=== PATIENT | female | born 2000 ===

== ENCOUNTER → 2021-08-30 | Outpatient (CLI) | payer OTHER ==
[~2021-08-30] MED LIST: PRENATAL
== END ==
LOC: DIA.ED 08-14 11:03
DX: O24.419 Gestational diabetes mellitus in pregnancy, unspecified control (principal)
CPT/HCPCS: G0108

== ENCOUNTER 2021-10-05 10:39 | Outpatient (CLI) | payer OTHER ==
[~2021-10-05] VITALS: Ht 149.9 cm; Wt 78.6 kg
--- NOTE | 2021-10-05 10:45 | NUR ---
patient here to LR4 for a labor check. patient sent over from office with elevated blood pressure. patient here with , ancelmo. paitent denies bleeding, leaking of fluid or contractions. patient in the bathroom from [id number]
[2021-10-05] MEDS ORDERED: PRENATAL (11:09)
[2021-10-05 11:18] LABS: BASO % 0.3 % (0.0-2.0); EOS % 0.3 % (0-4.0); GRAN # 6.8 K/mm3 (1.4-6.5); LYMPH # 2.3 K/mm3 (1.2-3.4); LYMPH % 23.5 % (20.0-51.0); MEAN CELL VOLUME 78 fl (80.0-95.0); MEAN CORPUSCULAR HGB CONC 31 g/dl (33.0-37.0); MEAN PLATELET VOLUME 11.4 fl (7.4-10.4); MONO # 0.7 K/mm3 (0.1-0.6); MONO % 6.8 % (1.7-9.3); PLATELET COUNT 245 K/mm3 (130-400); RED BLOOD COUNT 3.72 M/mm3 (4.10-5.30)
[2021-10-05 11:20] LABS: HEMATOCRIT 29.1 % (35.0-45.0); HEMOGLOBIN 9.1 g/dl (12.0-15.0); MEAN CORPUSCULAR HEMOGLOBIN 24 pg (26.0-32.0)
[2021-10-05 11:30] VITALS: BP 151/71; PULSE 93; TEMP 98
[2021-10-05 11:32] LABS: ALBUMIN 2.9 gm/dL (3.5-5.0); BILIRUBIN,TOTAL 0.2 mg/dL (0.2-1.2); CALCIUM 8.7 mg/dL (8.4-10.2); CREATININE, serum 0.72 mg/dL (0.57-1.11); POTASSIUM 3.8 mmol/L (3.5-4.5); TOTAL PROTEIN 6.9 gm/dL (6.2-8.1)
[2021-10-05 11:55] LABS: COLLECTION METHOD CLEAN CATCH
[2021-10-05 12:00] VITALS: BP 127/64; PULSE 75
[2021-10-05 12:03] LABS: MUCOUS Present (NOT PRESENT); PH 6 (5-8); URINE APPEARANCE Hazy (CLEAR/HAZY); URINE BACTERIA Rare (NONE SEEN); URINE BILIRUBIN Negative (NEGATIVE); URINE BLOOD 1+ (NEGATIVE); URINE COLOR Yellow (YELLOW); URINE GLUCOSE Negative (NEGATIVE); URINE KETONE Negative (NEGATIVE); URINE LEUKOCYTE ESTERASE Trace (NEGATIVE); URINE NITRATE Negative (NEGATIVE); URINE PROTEIN(semi-quant) Negative (NEGATIVE); URINE RBC 0-2 /hpf (0-2); URINE UROBILINOGEN Negative (NEGATIVE)
[2021-10-05 12:28] VITALS: BP 124/61; PULSE 76
== END 2021-10-05 12:35 | disposition home or self-care (01) ==
LOC: LDRO 10:39
PROVIDERS: Obstetrics & Gynecology
DX: O13.3 Gestational [pregnancy-induced] hypertension without significant proteinuria, third trimester (principal); Z3A.38 38 weeks gestation of pregnancy

== ENCOUNTER 2021-10-21 08:19 | Outpatient (CLI) | payer OTHER ==
[~2021-10-21] VITALS: Ht 149.9 cm; Wt 81.8 kg
--- NOTE | 2021-10-21 08:30 | NUR ---
Patient ambulatory to LR6 with spouse, patient void and urine obtained, changed into gown, FHR/TOCO monitors placed and explained. Patient here for potential induction at this time for increased blood pressures. Plan of care discussed. 0840: IV attemepted. Dr. Bush at bedside and discusses the change of plan. Dr. Bush discussing due to blood pressures stable and if labs are okay that she will be discharged. Patient verbalizes understanding and agrees with plan. 0845: SVE-3/80/-2 and membranes stripped at this time per Dr. Bush. 0920: Subtle late decelerations noted and Dr. Bush at nurses station reviewing FHR strip. 0930: Labs resulted and within normal limits and Dr. Bush orders her to be discharged and for her to do blood pressure check this week in the office. 0939: Patient off monitors and discussed plan and discharge instructions given. Patient verbalizes understanding. 0955: Patient ambulates off unit with spouse.
[2021-10-21 09:00] VITALS: BP 136/63; PULSE 93
[2021-10-21 09:16] LABS: COLLECTION METHOD CLEAN CATCH
[2021-10-21 09:19] LABS: MEAN CELL VOLUME 79 fl (80.0-95.0); MEAN CORPUSCULAR HGB CONC 31 g/dl (33.0-37.0); MEAN PLATELET VOLUME 11.3 fl (7.4-10.4); PLATELET COUNT 204 K/mm3 (130-400); RED BLOOD COUNT 3.62 M/mm3 (4.10-5.30); REDCELL DISTRIBUTION WIDTH-CV 15.8 % (11.5-14.5)
[2021-10-21 09:21] LABS: HEMATOCRIT 28.5 % (35.0-45.0); HEMOGLOBIN 8.7 g/dl (12.0-15.0); MEAN CORPUSCULAR HEMOGLOBIN 24 pg (26-32)
[2021-10-21 09:22] LABS: MUCOUS Present (NOT PRESENT); PH 6 (5-8); URINE APPEARANCE Hazy (CLEAR/HAZY); URINE BACTERIA None Seen (NONE SEEN); URINE BILIRUBIN Negative (NEGATIVE); URINE BLOOD 2+ (NEGATIVE); URINE COLOR Yellow (YELLOW); URINE GLUCOSE Negative (NEGATIVE); URINE KETONE Negative (NEGATIVE); URINE LEUKOCYTE ESTERASE 1+ (NEGATIVE); URINE NITRATE Negative (NEGATIVE); URINE PROTEIN(semi-quant) Negative (NEGATIVE); URINE RBC 0-2 /hpf (0-2); URINE UROBILINOGEN Negative (NEGATIVE); URINE WBC 20-50 /hpf (0-2)
[2021-10-21 09:44] LABS: ALBUMIN 2.6 gm/dL (3.5-5.0); BILIRUBIN,TOTAL 0.2 mg/dL (0.2-1.2); CALCIUM 8.6 mg/dL (8.4-10.2); CREATININE, serum 0.68 mg/dL (0.57-1.11); POTASSIUM 4.1 mmol/L (3.5-4.5); TOTAL PROTEIN 6.2 gm/dL (6.2-8.1)
[2021-10-21 09:49] VITALS: BP 117/67; PULSE 78; TEMP 98.2
[2021-10-21 10:51] LABS: BAND 1 % (0-10); LYMPHOCYTE 23 % (20.0-51.0); NEUTROPHILS 71 % (42.0-75.2)
[2021-10-21 10:55] LABS: ANISOCYTOSIS 1+; HYPOCHROMIA 3+; MICROCYTOSIS 1+; PLATELET ESTIMATE NORMAL (NORMAL)
== END 2021-10-21 09:55 | disposition home or self-care (01) ==
LOC: LDRO 08:19 → LDR 09:01 → LDRO 09:55
PROVIDERS: Obstetrics & Gynecology
DX: O13.3 Gestational [pregnancy-induced] hypertension without significant proteinuria, third trimester (principal); Z3A.40 40 weeks gestation of pregnancy

== ENCOUNTER 2021-10-22 07:53 | Inpatient (IN) | payer OTHER ==
[2021-10-22] VITALS (44 sets, daily range): BP systolic 101–168; BP diastolic 55–97; PULSE 90–150; TEMP 98.8–101.8
--- NOTE | 2021-10-22 08:00 | NUR ---
Patient ambulates to LR5 with spouse, changed into gown, FHR/TOCO monitors placed. Patient states "I had a gush of fluid around 0630 this morning and then two more gushes and continue to leak". Denies any regular contractions/vaginal bleeding/decreased movement. Plan of care discussed. SVE-3/80/-2 and clear/yellow fluid noted on chucks. Amniotest undetermined. Patient updated on plan and questions answered. 0830: FHR baseline 145bpm and minimal variability noted. Patient stands at bedside and fluid gushes down leg and amnitest positive. Dr. Palacios notified and admit order received. 0900: FHR baseline 145bpm and minimal variability noted and patient left lateral. 0915: IV started in right hand, blood obtained and to lab, LR bolus started. Patient off monitors to void.
[2021-10-22 09:37] LABS: BASO % 0.2 % (0.0-2.0); EOS % 0.1 % (0.0-4.0); GRAN # 10.8 K/mm3 (1.4-6.5); GRAN % 79.3 % (42.2-75.2); LYMPH # 1.9 K/mm3 (1.2-3.4); MEAN CELL VOLUME 75 fl (80.0-95.0); MEAN CORPUSCULAR HGB CONC 31 g/dl (33.0-37.0); MEAN PLATELET VOLUME 11.5 fl (7.4-10.4); MONO # 0.7 K/mm3 (0.1-0.6); MONO % 5.4 % (1.7-9.3); PLATELET COUNT 202 K/mm3 (130-400); RED BLOOD COUNT 3.88 M/mm3 (4.10-5.30); REDCELL DISTRIBUTION WIDTH-CV 15.9 % (11.5-14.5)
[2021-10-22 09:38] LABS: HEMATOCRIT 29.1 % (35.0-45.0); MEAN CORPUSCULAR HEMOGLOBIN 23 pg (26-32)
--- NOTE | 2021-10-22 09:45 | NUR ---
Dr. Palacios at nurses station and reviewing FHR strip at this time. Patient notified of FHR baseline and minimal variability and drinking cranberry juice at this time. 1000: Dr. Palacios at bedside and SVE 3/-1 and AROM of forebag at this time, clear fluid noted. Dr. Palacios discussing plan of care with patient and spouse. 1030: Patient requesting epidural at this time and Shara TERRAZZ[employer] MECHANIC notified. 1040: Patient sitting up on edge of bed for placement of epidural and Tory Bishop TERRAZZO MECHANIC at bedside. Difficulty tracing FHR due to maternal position. Patient anxious and this RN assisting patient. 1052: Test dose given and patient tolerates well. 1100: Patient repositioned and plan of care/safety instructions discussed. 1125: FHR baseline 145bpm with minimal variability noted and patient wedged left.
--- NOTE | 2021-10-22 11:45 | NUR ---
Patient uncomfortable and patient has pushed button twice and legs do not feel numb per patient. 1200: SVE 5-/-1 and patient feeling alot of discomfort with check. Tory Bishop CRNA notified. 1215: Tory Bishop CRNA at bedside and removes epidural catheter at this time. Patient sitting up for epidural replacement. Difficulty tracing FHR due to maternal heart position. 1222: Test dose given and patient tolerates well. 1228: Patient repositioned and plan of care discussed. 1255: Patient comfortable with epidural and mata catheter placed. SVE /-1.
--- NOTE | 2021-10-22 13:00 | NUR ---
This RN discussing FHR with patient and discussing that FHR baseline has been 145-150bpm and has continuously been minimal varibiality. FHR stable.
--- NOTE | 2021-10-22 14:18 | NUR ---
SVE-7/90/-1 and patient right lateral. Dr. Palacios updated on progress.
--- NOTE | 2021-10-22 14:50 | NUR ---
Patient placed in knees chest and FHR increasing to 160bpm. 1500: Patient left lateral. 1515: Dr. Palacios updated at nurses station and orders to start antibiotics at this time. 1530: Physician at bedside and assessing FHR strip and patient. SVE per physician /-1. Patients temperature 102.0 at this time.
--- NOTE | 2021-10-22 16:32 | NUR ---
SVE-7-8/100/-1 and patient weged left. Patient vomits at this time. 1636: FHR decreasing to 100 bpm. 1637: FHR decreasing to 60bpm for 50-60 seconds and patient left lateral. SVE-7-8/100/-1. 1645: Dr. Palacios called and notified of heart rate. 1655: Dr. Palacios at bedside and assessing FHR strip and patient. SVE-7-8/100/-1 1700-Dr. Palacios discussing the need for a csection at this time. Patient agrees with plan and plan of surgery/risks discussed. 1705: Temperature 102.3. Patient prepped for surgery and questions answered. 1711: Patient off monitor and to OR.
[2021-10-23 05:15] VITALS: BP 124/65; PULSE 88; TEMP 98.1
[2021-10-23 07:30] VITALS: BP 122/56; PULSE 91; TEMP 97.9
--- NOTE | 2021-10-23 07:45 | NUR ---
Rests in bed, alert. Ibuprofen 800 mg given as ordered. Gentamycin 80 mg given iv as ordered.
[2021-10-23] MEDS ORDERED: PERCOCET 325 MG1 TA2 PO (08:12)
[2021-10-23] MEDS ORDERED: MOTRIN 800800 MG/TAB PO (08:12)
--- NOTE | 2021-10-23 09:19 | NUR ---
Initial visit; Parents thanked Master Motorcycle Technician for offering congratulations and God's blessings for the of their daughter. Master Motorcycle Technician thanked family for choosing [facility].
[2021-10-23 11:15] VITALS: BP 119/58; PULSE 87; TEMP 97.9
--- NOTE | 2021-10-23 13:30 | NUR ---
Rests in bed, alert. Eating lunch. Denies any needs at this time.
[2021-10-23 16:15] VITALS: BP 123/57; PULSE 90; TEMP 97.9
--- NOTE | 2021-10-23 16:19 | NUR ---
Ibuprofen 800 mg, oxycodone 5 mg given as ordered.
[2021-10-23 20:00] VITALS: BP 128/69; PULSE 90; TEMP 98.6
--- NOTE | 2021-10-23 20:51 | NUR ---
THIS PT DID RECEIVE 3 DOSES OF GENT. THERE WAS A DOSE GIVEN AT 2300 ON 10/22/21 BUT WAS NOT DOCUMENTED. THIS WAS VERIFIED BY THE ACTIVITY SHEET OF THE OMNICELL AND THE RN WHO GAVE IT.
--- NOTE | 2021-10-24 00:30 | NUR ---
PT IS ASLEEP DOES NOT WAKE WHEN RN ENTERS ROOM AND CALLS HER NAME. PT DID NOT NOT WANT TO BE WOKEN UP FOR MOTRIN IF BABY WAS NOT READY TO EAT.
[2021-10-24 02:00] VITALS: BP 120/60; PULSE 77; TEMP 98.4
[2021-10-24 07:46] VITALS: BP 119/68; PULSE 78; TEMP 97.6
[2021-10-24 15:46] VITALS: BP 120/66; PULSE 103; TEMP 97.7
[2021-10-24 19:30] VITALS: BP 131/67; PULSE 107; TEMP 98.1
[2021-10-25 06:00] VITALS: BP 119/56; PULSE 90; TEMP 98.1
[2021-10-25 07:00] VITALS: BP 114/72; PULSE 86; TEMP 98.2
== END 2021-10-25 14:00 | disposition home or self-care (01) | DRG 786 ==
LOC: LDRO 07:53 → LDR 08:25 → OB 18:57 → LDRO 10-23 → OB 10-23 02:06
PROVIDERS: Obstetrics & Gynecology; ADMIT Obstetrics & Gynecology
PROC: 10D00Z1 Extraction of Products of Conception, Low, Open Approach (ICD-10-PCS; principal; 2021-10-23)
DX: O13.4 Gestational [pregnancy-induced] hypertension without significant proteinuria, complicating childbirth (principal); O41.1230 Chorioamnionitis, third trimester, not applicable or unspecified; O24.420 Gestational diabetes mellitus in childbirth, diet controlled; O76 Abnormality in fetal heart rate and rhythm complicating labor and delivery; O62.1 Secondary uterine inertia; O75.89 Other specified complications of labor and delivery; O32.4XX0 Maternal care for high head at term, not applicable or unspecified; O90.81 Anemia of the puerperium; D64.9 Anemia, unspecified; Z3A.40 40 weeks gestation of pregnancy; Z37.0 Single live birth
CPT/HCPCS: J0171; J0290; J1580; J1885; J2405; J2590; J7120

== ENCOUNTER 2021-11-03 16:01 | Emergency (ER) | payer OTHER ==
[~2021-11-03] VITALS: Ht 149.9 cm; Wt 71.2 kg
[~2021-11-03 16:01] MED LIST changes: +MOTRIN 800800 MG/TAB PO; +PERCOCET 325 MG1 TA2 PO
[2021-11-03 16:33] VITALS: TEMP 100.7
[2021-11-03 17:15] LABS: COLLECTION METHOD CLEAN CATCH
[2021-11-03 17:18] LABS: BASO % 0.4 % (0.0-2.0); EOS % 0.2 % (0.0-4.0); GRAN # 8.9 K/mm3 (1.4-6.5); GRAN % 87.3 % (42.2-75.2); LYMPH # 0.8 K/mm3 (1.2-3.4); LYMPH % 8.3 % (20.0-51.0); MEAN CELL VOLUME 78 fl (80.0-95.0); MEAN CORPUSCULAR HGB CONC 29 g/dl (33.0-37.0); MEAN PLATELET VOLUME 9.5 fl (7.4-10.4); MONO # 0.4 K/mm3 (0.1-0.6); MONO % 3.5 % (1.7-9.3); PLATELET COUNT 338 K/mm3 (130-400); RED BLOOD COUNT 3.51 M/mm3 (4.10-5.30); REDCELL DISTRIBUTION WIDTH-CV 16.4 % (11.5-14.5)
[2021-11-03 17:19] LABS: HEMATOCRIT 27.3 % (35.0-45.0); MEAN CORPUSCULAR HEMOGLOBIN 23 pg (26-32)
[2021-11-03 17:24] LABS: MUCOUS Present (NOT PRESENT); PH 5 (5-8); SQUAMOUS EPITHELIAL 0-2 /hpf (0-10); URINE APPEARANCE Cloudy (CLEAR/HAZY); URINE BACTERIA Rare /hpf (NONE SEEN); URINE BILIRUBIN Negative (NEGATIVE); URINE BLOOD 2+ (NEGATIVE); URINE COLOR Yellow (YELLOW); URINE GLUCOSE Negative (NEGATIVE); URINE KETONE Negative (NEGATIVE); URINE LEUKOCYTE ESTERASE 3+ (NEGATIVE); URINE NITRATE Negative (NEGATIVE); URINE PROTEIN(semi-quant) Negative (NEGATIVE); URINE UROBILINOGEN Negative (NEGATIVE)
[2021-11-03 17:36] LABS: ALBUMIN 2.9 gm/dL (3.5-5.0); BILIRUBIN,TOTAL 0.4 mg/dL (0.2-1.2); C-REACTIVE PROTEIN 3.49 mg/dL (0.00-0.50); CALCIUM 8.3 mg/dL (8.4-10.2); CREATININE, serum 0.83 mg/dL (0.57-1.11); POTASSIUM 3.9 mmol/L (3.5-4.5); TOTAL PROTEIN 6.9 gm/dL (6.2-8.1)
[2021-11-03] MEDS ORDERED: AMOXICILLIN 8751 TAB PO (19:19)
[2021-11-03 19:29] VITALS: BP 118/69; PULSE 98
== END 2021-11-03 19:29 | disposition home or self-care (01) ==
LOC: COL.ER 16:01
PROVIDERS: Emergency Medicine
DX: O86.20 Urinary tract infection following delivery, unspecified (principal); D64.9 Anemia, unspecified; Z20.822 Contact with and (suspected) exposure to COVID-19
CPT/HCPCS: J0696; J7030

== ENCOUNTER 2022-04-10 05:56 | Emergency (ER) | payer OTHER ==
[~2022-04-10] VITALS: Ht 152.4 cm; Wt 54.5 kg
[~2022-04-10 05:56] MED LIST changes: +AMOXICILLIN 8751 TAB PO
[2022-04-10 06:05] VITALS: BP 122/69; TEMP 98.5
[2022-04-10] MEDS ORDERED: REGLAN 10MG10 MG/TAB PO (06:18)
[2022-04-10] MEDS ORDERED: NAPROSYN500 MG PO (06:18)
[2022-04-10 06:36] VITALS: PULSE 71
== END 2022-04-10 06:36 | disposition home or self-care (01) ==
LOC: COL.ER 05:56
DX: S06.0X0A Concussion without loss of consciousness, initial encounter (principal); Z28.311 Partially vaccinated for COVID-19; W01.198A Fall on same level from slipping, tripping and stumbling with subsequent striking against other object, initial encounter